=== PATIENT | male | born 1950 | race Caucasian/White ===

== ENCOUNTER → 2018-07-13 | Outpatient (CLI) | payer OTHER ==
[~2018-07-13] MED LIST: ASPIRIN81 M2 PO; BUDEPRION XL300 MG PO; LAMICTAL XR100 MG PO; PRINZIDE 20-121 EACH PO; ZOCOR40 MG PO
== END ==
LOC: MRI 09:16
DX: M25.512 Pain in left shoulder (principal); Z98.890 Other specified postprocedural states; Z91.81 History of falling

== ENCOUNTER 2018-11-30 05:43 | Observation (INO) | payer OTHER ==
[~2018-11-30] VITALS: Ht 172.7 cm; Wt 113.4 kg
[~2018-11-30 05:43] MED LIST changes: +AMBIEN 5 MG TABL5 M1 PO; +CO-ENZYME Q-1010 MG PO; +FINASTERIDE5 MG PO; +FLOMAX0.4 MG PO; +LIPITOR80 MG PO; +LISINOPRIL-HCT1 EAC1 PO
[2018-11-30 08:45] LABS: CALCIUM 9.6 mg/dL (8.5-10.1); CREATININE 1.1 mg/dL (0.7-1.3); POTASSIUM 4.2 mmol/L (3.5-5.1)
[2018-11-30 08:59] VITALS: BP 145/74
[2018-11-30 15:00] VITALS: BP 125/71
[2018-11-30 16:00] VITALS: BP 126/71
[2018-11-30 17:16] VITALS: BP 122/70
--- NOTE | 2018-11-30 18:05 | NUR ---
PT ARRIVED TO THE UNIT AT APPROX 1430 POST ROTATOR CUFF SURGERY. PT IS ALERT AND ORIENTED X4, ABLE TO MAINTAIN 02 SAT >90 ON 2L NC. EVEN NON LABORED BREATHING. POST OP VITALS INITIATED. PT MONITORED ON APNEA MONITOR. COAL PICKER PUMP INITIATED AT TIME OF ARRIVAL. NO BASAL, NO BOLUS, AND NO PT INITATED DOSES GIVEN AT TIME OF ARRIVAL. REMAINS ON TKO FLUID FROM OR. SPOKE WITH PHARMACY ABOUT COAL PICKER PUMP INITATION IN OR BUT BAG NOT BEING SCANNED. PER PHARMACY SCANNED BAG TO BACK TIME OF ARRIVAL WITH NOTE THAT BAG WAS INITIATED BUT NOT SCANNED. THEN COMPLETED ASSESSMENTS IN REGARDS TO COAL PICKER PUMP. ADMISSION COMPLETED. PT HERE FOR OBSERVATION POST OP. PT IN STABLE CONDITION. NAD NOTED. WILL CONTINUE TO MONITOR.
[2018-11-30 19:50] VITALS: BP 105/54
[2018-12-01 04:20] VITALS: BP 104/62
--- NOTE | 2018-12-01 05:57 | NUR ---
PATIENT ALERT AND ORIENTED X4. UP WITH ASSIST. IMMOBILIZER ON R ARM/SHOULDER. DRESSING ON R SHOULDER D/I. DENIES PAIN. SLEPT MOST OF NIGHT.
[2018-12-01 08:00] VITALS: BP 99/54
--- NOTE | 2018-12-01 10:22 | O ---
[facility] [place] [address] OPERATIVE REPORT Name: MAG LARSEN Jamila Room #: 421-P [facility]..#: [id number] Admission: 11/30/18 ������������������ Attend Phys: Clemente Guzman MD Discharge: ������������������ Date of : 54 Report #: [id number] THIS REPORT FOR: //name// CC: Clemente Leblancstephanie DATE OF SERVICE: 11/30/2018 PREOPERATIVE DIAGNOSES: Right shoulder rotator cuff tear and chronic biceps tendon rupture. 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 PROCEDURE: 1. Arthroscopy, right shoulder with debridement of biceps tendon stump and labral damage and rotator cuff fraying. 2. Open decompressive acromioplasty and rotator cuff repair. SURGEON: Clemente Guzman MD INDICATIONS: This 68-year-old gentleman has had problems with bilateral shoulder discomfort and underwent left shoulder rotator cuff repair in the past with good result. Now, he has persistent right shoulder pain consistent with impingement and rotator cuff pathology. MRI confirms some small rotator cuff damage and absence of his bicep tendon, which I believe ruptured several years ago. He does have some degenerative fraying of the labrum. Given this constellation of findings, we have elected to go ahead with arthroscopic evaluation for debridement of any remnants of the biceps and labral damage and then open decompressive acromioplasty and rotator cuff repair. DESCRIPTION OF PROCEDURE: The patient was taken to the operating room where he was placed under general anesthesia. An interscalene block was also applied. The right shoulder and arm were meticulously prepped and draped. The arthroscope was introduced through a posterior portal rather marked synovial hypertrophy and a good deal of generalized erythema was noted in the joint. The biceps tendon had been previously ruptured and there was a small remnant at the superior labrum. The labrum itself was involved with significant degenerative fraying and wear from about 9 o'clock posteriorly to 3 o'clock anteriorly positioned. There was no frankly loose labrum and nothing, which would benefit from repair. I did feel that simple debridement would be helpful. Shaver was introduced through an anterior portal. The small stump of the bicep tendon was debrided and the areas of degenerative labral damage were also debrided bringing these back to a more smooth even margin. There is moderate degenerative change on both the humeral head and the glenoid and some loose cartilage debris in the joint. This was copiously irrigated and all small cartilage fragments were [address] [address] OPERATIVE REPORT Name: MAG LARSEN Room #: 421-P [facility]#: [id number] Admission: 11/30/18 ������������������ Attend Phys: Clemente Guzman MD Discharge: ������������������ Date of : 54 Report #: [id number]. The undersurface of the rotator cuff revealed evidence of partial thickness tearing near the supraspinatus insertion point. This undersurface was debrided with a shaver. I cannot define a clear full thickness tear. The remainder of the cuff seems to be largely intact, although there was a good deal of erythema and inflammation consistent with some chronic rotator cuff tendonitis. Attention was then directed to the open decompressive acromioplasty and incision was made anteriorly beginning at the anterior acromion extending distally about 4 cm. This was carried through subcutaneous tissues and the deltoid split longitudinally. The anterior acromion was quite prominent with a significant spur, which seemed to cause significant impingement. An anterior acromionectomy was performed. The undersurface of the acromion was debrided with a moderate decompressive acromioplasty, the undersurface was thoroughly smoothed and contoured using a small rasp. I could reach back to the acromioclavicular joint and found that there was a bit of spurring at this area, which was also debrided and smoothed with a small rasp. The clavicle itself seems to be stable with limited upriding. Once this had been accomplished, there seemed to be good improvement in the subacromial space and good visualization of the rotator cuff. There was a small atrophied partial thickness tear at the distal supraspinatus just at its insertion point. This was opened sharply and a small amount of attenuated frayed and damaged tendon was removed. This resulted in a small clean, well margin rotator cuff. This was repaired with a single #2 Tevdek sutures passed through the tendon and then out through the bone of the greater tuberosity. This attachment site was prepared with a small rongeur and curette to create a good bleeding bone. The sutures passed out through the bone and then tied over a bony bridge. This brought the repair back nicely to a stable watertight position. In addition, there was also significant, but still partial thickness tearing and fraying of the rotator cuff at the interval between the supraspinatus and subscapularis. This area was debrided and there did not seem to be a full thickness tear nor any instability. There was obviously chronic fraying and wear in this area; however, once debridement had been completed, a single #2 Tevdek suture was woven in this area, bringing the tendon edges back in the better and more stable approximation. No other significant structural abnormalities were identified. The subacromial space was once again inspected and there were no further areas of spurring or impingement. The deltoid was then reapproximated using multiple #1 Vicryl sutures. There was excellent repair back to the bone at the anterior acromion, making a good solid repair. The subcutaneous tissues were closed with 2-0 Monocryl. The skin was closed with running subcuticular 2-0 Prolene. [facility] [place] [address] OPERATIVE REPORT Name: MAG LARSEN Room #: 421-P [facility] Phillip#: [id number] Admission: 11/30/18 ������������������ Attend Phys: Clemente Guzman MD Discharge: ������������������ Date of : 54 Report #: [id number] arthroscopy portals were closed with 4-0 nylon. A sterile dressing was applied. The patient was awakened and returned to recovery room in good condition. ��������������������������������������������� <ELECTRONICALLY SIGNED> ���������������������������������������� By: Clemente Guzman MD ��������������������������������������������� 12/01/18 1022 [id number] Clemente Guzman MD /nt
[2018-12-01 13:08] VITALS: BP 99/54
--- NOTE | 2018-12-03 17:57 | EKG ---
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 : [id number] Requested By: Ebony Muir Order Number: [id number] MD: Hugo Rubalcava Measurements Intervals [place] Rate: 44 P: 21 NH: 235 QRS: -24 QRSD: 92 T: 5 QT: 465 QTc: 398 Interpretive Statements Sinus bradycardia Prolonged NH interval Abnormal R-wave progression, late transition Compared to ECG 11/29/2011 08:25:16 First degree AV block now present Electronically Signed On 12-03-2018 17:57:03 CDT by Hugo Rubalcava [email or web address] ��������������������������������������������� <ELECTRONICALLY SIGNED> ���������������������������������������� By: Hugo Rubalcava MD, [facility] ��������������������������������������������� 12/03/18 1757 0832 0832 Hugo Rubalcava MD, [facility] /EPI
== END 2018-12-01 14:48 | disposition home or self-care (01) ==
LOC: TBA 05:43 → OR 05:43 → TBA 05:44 → OR 11:04 → 4E 13:57 → OR 15:38 → ENTRNSPT 12-01 14:42 → EDTRNSPTSTS 12-01 14:46 → 4E 12-01 14:48
PROVIDERS: Anesthesiology; ADMIT Orthopaedic Surgery
DX: S46.011A Strain of muscle(s) and tendon(s) of the rotator cuff of right shoulder, initial encounter (principal); S46.211A Strain of muscle, fascia and tendon of other parts of biceps, right arm, initial encounter; M75.112 Incomplete rotator cuff tear or rupture of left shoulder, not specified as traumatic; M65.4 Radial styloid tenosynovitis [de Quervain]; I10 Essential (primary) hypertension; X58.XXXA Exposure to other specified factors, initial encounter; Y93.89 Activity, other specified; Y92.89 Other specified places as the place of occurrence of the external cause
CPT/HCPCS: 50010; 50101; 50386; 50417; 50733; 51038; 56525; 56526; 62110; 62900; 64043; 65060; 70005

== ENCOUNTER → 2019-05-29 | Outpatient (CLI) | payer OTHER | LOC: CAT 09:11 | DX: Z13.6 Encounter for screening for cardiovascular disorders (principal); E78.00 Pure hypercholesterolemia, unspecified; I25.10 Atherosclerotic heart disease of native coronary artery without angina pectoris ==